=== PATIENT | male | born 1985 ===

== ENCOUNTER 2016-08-22 10:05 | Emergency (ER) | payer SELFPAY ==
[2016-08-22 11:11] VITALS: BP 151/66
--- NOTE | 2016-08-22 11:30 | UC ---
Abdominal Pain Male HPI - HPI Summary HPI Summary: Pty presents with c/o of abdominal bloating and early satiety that began 2 days after beginning clindamycin on 08/17. Pt denies, nausea, vomiting, weight loss, change in BM , black tarry stools or BRBPR. Pt does report ashely mother recently from stomach cancer. pt does not have Health insurance for the last 2-3 years and has not had a PE - History of Current Complaint Chief Complaint: UCAbdominalPain Stated Complaint: ABD FULLNESS Time Seen by Provider: 08/22/16 11:14 Hx Obtained From: Patient Onset/Duration: Gradual Onset, Lasting Days Timing: Constant Severity Initially: Mild Severity Currently: None Location: Diffuse Radiates: No Character: Other - bloating Aggravating Factor(s):: Food Alleviating Factor(s): Nothing Associated Signs And Symptoms: Positive: Negative - Allergies/Home Medications Allergies/Adverse Reactions: Allergies Allergy/AdvReac Type Severity Reaction Status Date / Time No Known Allergies Allergy Verified 08/22/16 11:06 Home Medications: Home Medications Clindamycin CAP* [Cleocin 150 MG CAP*] 300 mg PO TID 08/22/16 [History Confirmed 08/22/16] PMH/Surg Hx/FS Hx/Imm Hx Previously Healthy: Yes - Surgical History Surgical History: None - Family History Known Family History: Positive: Other - mother stomach cancer - Social History Alcohol Use: Occasionally Substance Use Type: None Smoking Status (MU): Never Smoked Tobacco Review of Systems Constitutional: Negative Skin: Negative Eyes: Negative ENT: Negative Respiratory: Negative Cardiovascular: Negative Gastrointestinal: Other - abdominal blaoting Genitourinary: Negative Motor: Negative Neurovascular: Negative Musculoskeletal: Negative Neurological: Negative Psychological: Negative All Other Systems Reviewed And Are Negative: Yes Physical Exam Triage Information Reviewed: Yes Appearance: Well-Appearing, Obese Vital Signs: Initial Vital Signs Temp 98.2 F 08/22/16 11:07 Pulse 88 08/22/16 11:07 Resp 18 08/22/16 11:07 BP 151/66 08/22/16 11:07 Pulse Ox 98 08/22/16 11:07 Vital Signs Reviewed: Yes Eye Exam: Normal ENT Exam: Normal Neck exam: Normal Respiratory Exam: Normal Cardiovascular Exam: Normal Abdominal Exam: Normal Bowel Sounds: Positive: Present Musculoskeletal Exam: Normal Neurological Exam: Normal Psychological Exam: Normal Skin Exam: Normal Abd Pain Male Course/Dx - Course Course Of Treatment: I discussed with the pt the need to get Health insurance and follow routinely with a PCP,. I provided a list of PCP providers and referral to patient advocate, Rea Avendano. Pt verbalized understanding and agreed to plan of care. - Differential Dx/Clinical Impression Differential Diagnosis/HQI/PQRI: Other - medication side effect/adverse reaction Provider Diagnoses: abdominal bloating. adverse side effect from medication (?) Discharge - Discharge Plan Condition: Stable Disposition: HOME Patient Education Materials: Gas and Bloating (ED) Referrals: JAZZMINE Flanagan [Medical Doctor] - As Soon As Possible Additional Instructions: Please follow up with the referral to the PCP group we have provided and with the patient advocate provided.
== END 2016-08-22 11:46 | disposition home or self-care (01) ==
LOC: UCCORT 10:05
DX: R14.0 Abdominal distension (gaseous) (principal); E66.9 Obesity, unspecified
CPT/HCPCS: 99201; G0463